=== PATIENT | male | born 1980 | race African-American/Black ===

== ENCOUNTER → 2021-12-03 17:32 | Outpatient (CLI) | payer OTHER, SELFPAY ==
--- NOTE | 2021-12-03 | DI.MRI.S_ITS ---
PROCEDURE: MR ANKLE RT WO CON INDICATIONS: pain in unspecified ankle and joints TECHNIQUE: Noncontrast sagittal T1 spin echo and T2 fast spin echo with fat saturation, axial proton density fast spin echo and T2 fast spin echo with fat saturation, coronal T1 spin echo and T2 fast spin echo with fat saturation through the ankle/hindfoot. COMPARISON: None. FINDINGS: Image quality: Excellent. Bones and joints: No bone marrow contusions or fractures. No hindfoot coalitions. No osteochondral injuries of the talar dome. No pathologic joint effusions. Medial structures: The posterior tibialis, flexor digitorum longus, and flexor hallucis longus tendons are thickened with small amount of fluid distending tendon sheath at the level of medial malleolus, distal talus/talonavicular joint. The posterior tibial neurovascular bundle appears normal within the tarsal tunnel, without extrinsic mass effect. The deltoid ligament and spring ligament complex are mildly thickened suggestive of low-grade sprain. Lateral structures: The anterior talofibular is thickened. The calcaneofibular, and posterior talofibular ligaments appear intact. More superiorly, the anterior and posterior tibiofibular ligaments appear intact, as is the intermalleolar ligament. The tibiofibular syndesmosis is normal in width at 2 mm or less. The peroneus longus and brevis tendons demonstrate normal location and morphology. Adjacent bony peroneal tubercle and retrotrochlear prominence are normal in size. The sinus tarsi demonstrates normal fatty signal, without edema, fibrosis, or cyst formation. Visualized sinus tarsi components (cervical ligament, interosseous talocalcaneal ligament, roots of the inferior extensor retinaculum) appear normal. The calcaneonavicular and calcaneocuboid components of the bifurcate ligament appear intact. The dorsal calcaneocuboid ligament appears intact. Anterior structures: The tibialis anterior, extensor hallucis longus, and extensor digitorum longus tendons appear intact. The dorsal talonavicular ligament appears intact. Posterior and plantar structures: Tendinosis and low-grade intrasubstance partial-thickness tear involving mid to distal portion of Achilles tendon is seen extending to its insertion on posterior calcaneus. No Achilles tendon rupture. Medial and lateral bands of the plantar fascia are of normal thickness. No abductor digiti quinti muscle atrophy to suggest Ng neuropathy. IMPRESSION: 1. No marrow edema. No fracture or dislocation. No suspicious intraosseous lesion. No osteochondral injury of talar dome. 2. Suggestion of distal Achilles tendinosis and low-grade partial-thickness tear. No Achilles tendon rupture. 3. Low-grade tenosynovitis involving flexor tendons as above. 4. Low-grade sprain involving deltoid ligament and spring ligament complex. Low-grade sprain also seen involving anterior talofibular ligament. Dictated by: Kendall Vega M.D. on 12/04/2021 at 22:26 Approved by: Kendall Vega M.D. on 12/04/2021 at 22:35
== END ==
DX: S93.421A Sprain of deltoid ligament of right ankle, initial encounter (principal); S93.491A Sprain of other ligament of right ankle, initial encounter; M25.571 Pain in right ankle and joints of right foot; M65.871 Other synovitis and tenosynovitis, right ankle and foot
CPT/HCPCS: 73721